=== PATIENT | male | born 1935 | race Caucasian/White ===

== ENCOUNTER 2019-09-25 11:06 | Outpatient (CLI) | payer MEDICARE, BC ==
[~2019-09-25] VITALS: Ht 185.4 cm; Wt 73.9 kg
--- NOTE | ~2019-09-25 | HEMODYNAMI ---
PATIENT:HUSSEIN LEAL JR MEDICAL RECORD: [id number] : 35 LOCATION:[facility] ADMISSION DATE: 09/25/19 Generatedon:09/25/201913:51 Patient name: HUSSEIN LEAL Patient #: [id number] SSN: [id number] : 1935 Date of study: 09/25/2019 Page: Of Hemodynamic Procedure Report Patient Data Patient Demographics Procedure consent was obtained First Name: HUSSEIN Gender: Male Last Name: MEL Suffix: [facility] Initial: Giulia : 1935 Patient #: [id number] Age: 84 year(s) Race: SSN: [id number] Additional ID: [id number] Contact details Address: [address] [place] [address] State: [place] City: [place] Zip code: [address] Past Medical History Allergies Allergen Reaction Date Comments Reported Sulfa drugs 09/25/2019 Admission Admission Data Admission Date: 09/25/2019 Admission Time: 11:06 Arrival Date: 09/25/2019 Arrival Time: 0:00 Admit Source: Other Insurance Payor: Medicare [facility] #: [id number] Procedure Procedure Types Cath Procedure Diagnostic Procedure [facility] LH w/Coronaries Sedation Charges Moderate Sedation up to 30 minutes PCI Procedure Coronary Stent Coronary Stent Initial Coronary Stent Additional Hemochron ACT Test Procedure Description Procedure Date Procedure Date: 09/25/2019 Procedure Start Time: 13:14 Procedure End Time: 13:48 Procedure Staff Name Function Cisco Borrero MD Performing Physician Sana Fernandez RT Monitor Dalton Jeffery RT Scrub Neville Olvera RN Nurse Procedure Data Cath Procedure Fluoroscopy Diagnostic fluoroscopy Total fluoroscopy Time: 8.9 time: 8.9 min min Diagnostic fluoroscopy Total fluoroscopy dose: dose: 1543 mGy 1543 mGy Contrast Material Contrast Material Type Amount (ml) Isovue 300 127 Entry Location Entry Primary Successful Side Size Upsize Upsize Entry Closure Succes sful Closure Location (Fr) 1 (Fr) 2 (Fr) Remarks Device Remarks Femoral Right 5 Fr Exoseal artery Estimated blood loss: 5 ml Diagnostic catheters Device Type Used For End Catheter Placement MULTIPACK JL 4.0 5Fr Left Coronary catheter Angiography MULTIPACK 3DRC 5Fr Right Coronary catheter Angiography MULTIPACK Pigtail 5 Fr LV Angiography catheter Procedure Complications No complications Procedure Medications Medication Administration Route Dosage Oxygen etCO2 Nasal cannula 2 l/min Lidocaine 2% added to field 20 Heparin Flush Bag added to field 2 bags (1000units/500ml NS) 0.9% NaCl I.V. 100 ml/hr Versed I.V. 1 mg Fentanyl I.V. 50 mcg Heparin Bolus I.V. 4000 units Versed I.V. 1 mg Integrilin (Bolus I.V. 6.8 ml 2mg/ml) Vasotec 2.5 mg Fentanyl I.V. 50 mcg Plavix P.O. 600 mg Hemodynamics Rest Heart Rate: 59 (bpm) Pressure Samples Time Site Value (mmHg) Purpose Heart Use Rate(bpm) 13:20 LV 191/7,6 Snapshot 73 Gradients Valve Time Site Site Mean SEP/DFP Peak To Heart Use 1 2 (mmHg) (sec/min) Peak Rate (mmHg) (bpm) Aortic 13:21 LV AO 67 Snapshots Pre Cath Intra NCS Post Cath Vital Signs Time Heart Resp SPO2 etCO2 NIBP (mmHg) Rhythm Pain Sedation Rate (ipm) (%) (mmHg) Status Level (bpm) 13:07:21 55 14 98 41.1 218/87(122) NSR 0 (11) 10(A) , No pain 13:12:04 52 16 100 35.1 218/90(187) NSR 0 (11) 10(A) , No pain 13:16:42 53 17 100 4.4 216/95(186) NSR 0 (11) 10(A) , No pain 13:21:21 58 12 100 2.9 223/102(173) NSR 0 (11) 9(A) , No pain 13:26:04 64 19 100 29.8 219/92(106) NSR 0 (11) 9(A) , No pain 13:30:44 60 11 100 27.6 210/90(169) NSR 0 (11) 9(A) , No pain 13:36:32 60 19 100 38.1 194/91(111) NSR 0 (11) 9(A) , No pain 13:42:16 64 14 100 40.3 223/100(164) NSR 0 (11) 9(A) , No pain 13:46:57 60 13 100 41.8 224/94(185) NSR 0 (11) 10(A) , No pain Medications Time Medication Route Dose Verified Delivered Reason Notes Effectiveness by by 13:04:57 Oxygen etCO2 2 Cisco Lozada used for Nasal l/min St Geo Olvera RN procedure cannula 13:05:02 Lidocaine 2% added 20ml Cisco Peck for local to vial [facility] anesthetic field MD HARRINGTON 13:05:08 Heparin Flush added 2 Cisco Peck used for Bag to bags [facility] procedure (1000units/500ml field MD HARRINGTON NS) 13:05:16 0.9% NaCl I.V. 100 Cisco Lozada Per physician ml/hr St Geo Olvera RN, MD 13:08:22 Versed I.V. 1 mg Cisco Lozada for sedation [facility] Geo Olvera RN, MD 13:08:32 Fentanyl I.V. 50 Cisco Lozada for sedation mcg [facility] Geo Olvera RN, MD 13:17:54 Versed I.V. 1 mg Cisco Lozada for sedation St Geo Olvera RN, MD 13:23:33 Heparin Bolus I.V. 4000 Cisco Lozada for verif ied units St Geo Olvera RN anticoagulation with dr MD dykes 13:25:18 Integrilin I.V. 6.8 Cisco Lozada for waste d (Bolus 2mg/ml) ml St Geo Olvera RN antiplatelet 3.2 ml therapy of vial 13:28:58 Vasotec IV 2.5 Cisco Lozada for mg [facility] Geo Olvera RN hypertension 13:40:22 Fentanyl I.V. 50 Cisco Lozada for sedation mcg St Geo Olvera RN, MD 13:44:29 Plavix P.O. 600 Cisco Lozada for mg St Geo Olvera RN antiplatelet therapy Procedure Log Time Note 12:18:31 Diagnostic Cath Status : Elective 12:20:25 Arrival Date: 09/25/2019 12:00:00 AM 12:21:16 Admit Source: Other 12:21:19 Insurance Payor : Medicare 12:22:18 Procedure Status Elective Heart Cath (OP). 12:22:20 Neville Olvera RN sent for patient. Start room use. 12:22:21 Time tracking: Regular hours (M-F 7:00 - 5:00) 12:22:24 Plan of Care:Hemodynamics will remain stable., Cardiac rhythm will remain stable., Comfort level will be maintained., Respiratory function will remain adequate., Patient/ family verbilizes understanding of procedure., Procedure tolerated without complication., Recovers from procedure without complications.. 12:54:03 Patient received from Pre/Post Procedure Room to CCL 2 Alert and oriented. Tansferred to table in Supine position. 12:54:05 Warm blankets applied, and sheila hugger turned on for patient comfort. 12:54:06 Signed procedure consent form obtained from patient. 12:54:07 Correct patient and procedure confirmed by team. 12:54:07 ECG and BP/O2 sat monitors applied to patient. 12:58:24 H&P Date Dictated: 09/22/2019 Within 30 days and on chart., H&P Addendum completed by physician on day of procedure. (MUST COMPLETE FOR ALL OUTPATIENTS). 12:58:25 Pre-procedure instructions explained to patient. 12:58:25 Pre-op teaching completed and patient verbalized understanding. 12:58:27 Family in patients room. 12:58:28 Patient NPO since Midnight. 12:58:33 Patient allergic to Sulfa drugs 12:58:38 Is the patient allergic to Iodine/contrast media? No. 12:58:39 Is patient on blood thinner?No 12:58:41 Full Disclosure recording started 12:58:45 Patient diabetic? No. 12:58:47 Previous problem with sedation/anesthesia? No ? 12:58:48 Snore? Yes 12:58:49 Sleep apnea? No 12:58:50 Deviated septum? No 12:58:51 Opens mouth fully? Yes 12:58:51 Sticks out tongue? Yes 12:58:53 Airway obstruction? No ? 12:58:55 Dentures? No ? 12:59:03 Patient pain scale 0/10 ?. 12:59:33 IV patent on arrival in left forearm with 0.9% NaCl at [facility]. 13:04:07 Baseline sample Acquired. 13:04:18 Right groin area was prepped with chlora-prep and draped in sterile fashion 13:04:19 Alarms reviewed by RJuancarlos NJuancarlos 13:04:19 Sharps counted by scrub and verified by R.N. 13:04:20 Physician arrived 13:04:21 --------ALL STOP TIME OUT------ 13::21 Final Timeout: patient, procedure, and site verified with staff and physician. All members of the team are in agreement. 13:04:23 Right groin site verified by team. 13:04:26 Fire Safety Assessment: A--An alcohol-based skin anteseptic being used preoperatively., C--Open oxygen or nitrous oxide is being used., D--An ESU, laser, or fiber-optic light is being used. 13:04:30 Physical assessment completed. ASA score P 2 - A patient with mild systemic disease as per Cisco Borrero MD. 13:04:34 Sedation plan: IV Moderate Sedation Medication:Versed, Fentanyl 13:04:47 Vital chart was started 13:04:55 Baseline sample Acquired. 13:04:57 Oxygen 2 l/min etCO2 Nasal cannula was administered by Neville Olvera RN; used for procedure; Verbal order read back and verified. 13:05:00 Rhythm: sinus rhythm 13:05:02 Lidocaine 2% 20ml vial added to field was administered by Cisco Borrero MD; for local anesthetic; Verbal order read back and verified. 13:05:08 Heparin Flush Bag (1000units/500ml NS) 2 bags added to field was administered by Cisco Borrero MD; used for procedure; Verbal order read back and verified. 13:05:16 0.9% NaCl 100 ml/hr I.V. was administered by Neville Olvera RN; Per physician; Verbal order read back and verified. 13:08:22 Versed 1 mg I.V. was administered by Neville Olvera RN; for sedation; Verbal order read back and verified. 13:08:32 Fentanyl 50 mcg I.V. was administered by Neville Olvera RN; for sedation; Verbal order read back and verified. 13:13:03 2) 60-89 Mildly reduced kidney function, and other findings (as for stage 1) point to kidney disease. 13:13:06 Maximum allowable contrast dose (3.7 X eGFR X 0.75)250 ml. 13:13:11 Use device set Femoral Dx 13:13:12 ACIST Syringe (24356) opened to sterile field. 13:13:12 Bag Decanter (2001S) opened to sterile field. 13:13:13 Medline Cath Pack ([id number]) opened to sterile field. 13:13:14 ACIST Hand Control (63060) opened to sterile field. 13:13:14 ACIST Manifold (64863) opened to sterile field. 13:13:14 DIAGNOSTIC Multipack 5Fr catheter set (OY1812) opened to sterile field. 13:13:15 Tegaderm 4 x 4 (1626W) opened to sterile field. 13:13:16 SHEATH 5FR [place] (DYA073) opened to sterile field. 13:13:16 EMERALD Guide Wire (084-692) opened to sterile field. 13:13:20 Procedure started. 13:14:58 Local anesthetic to right femoral artery with Lidocaine 2% by Cisco Borrero MD.INITIAL ACCESS ONLY 13:15:05 A 5 Fr sheath was inserted into the Right Femoral artery 13:15:08 Zero performed for pressure channel P1 13:16:10 A MULTIPACK JL 4.0 5Fr catheter was advanced over the wire and used for Left Coronary Angiography. 13:17:18 LCA angiography performed. 13:17:22 Injector settings: Ml/sec: 3, Volume: 6, 13:17:54 Versed 1 mg I.V. was administered by Neville Olvera RN; for sedation; Verbal order read back and verified. 13:18:24 Catheter removed. 13:18:50 A MULTIPACK 3DRC 5Fr catheter was advanced over the wire and used for Right Coronary Angiography. 13:19:16 RCA angiography performed. 13:19:21 Injector settings: Ml/sec: 3, Volume: 6, 13:19:28 Catheter removed. 13:19:34 A MULTIPACK Pigtail 5 Fr catheter was advanced over the wire and used for LV Angiography. 13:20:55 LV hemodynamics recorded. 13:20:56 LV gram done using MENDOZA 13:21:00 Injector settings: Ml/sec: 5, Volume: 15, 13:21:05 EF : 55 % 13:21:30 SHEATH 6FR [place] (TFO920) opened to sterile field. 13:21:31 WHISPER 300cm guide wire ([id number]) opened to sterile field. 13:21:32 INFLATOR Merit BasixCompak (MG9072) opened to sterile field. 13:21:32 GUIDE 6FR XBLAD 3.5 catheter ([id number]) opened to sterile field. 13:21:43 6 Fr xblad 3.5 guide catheter was inserted over the wire 13:21:48 whisper wire advanced. 13:21:50 ACC Pre-intervention LAWANDA Flow is 3. 13:23:33 Heparin Bolus 4000 units I.V. was administered by Neville Olvera RN; for anticoagulation; verified with dr dykes Verbal order read back and verified. 13:25:18 Integrilin (Bolus 2mg/ml) 6.8 ml I.V. was administered by Neville Olvera RN; for antiplatelet therapy; wasted 3.2 ml of vial Verbal order read back and verified. 13:26:43 Wire advanced across lesion. 13:28:51 Pre PCI Site: [place] Diag1 has 80% stenosis. 13:28:58 Vasotec 2.5 mg IV was administered by Neville Olvera RN; for hypertension; Verbal order read back and verified. 13:30:38 The INTEGRITY OTW 2.5 x 14 stent ([id number]) was advanced then removed because in body, not inflated 13:30:47 Wire removed. 13:30:49 Guide catheter removed. 13:32:12 GUIDE 6FR Q 4.0 catheter ([id number]) opened to sterile field. 13:32:57 6 Fr q4 guide catheter was inserted over the wire 13:34:39 whisper wire advanced. 13:35:55 Place stent Inflation Number: 1 A INTEGRITY OTW 2.5 x 14 stent ([id number]) was prepped and advanced across the 1st Diag 80. The stent was deployed at 14 SANCHEZ for 0:30 (min:sec) 0. 13:36:27 Wire redirected to LAD. 13:38:17 Stent catheter was removed intact over wire. 13:39:15 Place stent Inflation Number: 1 A INTEGRITY RX 3.0 x 09 stent ([id number]) was prepped and advanced across the Prox LAD 80. The stent was deployed at 14 SANCHEZ for 0:10 (min:sec) 0. 13:40:22 Fentanyl 50 mcg I.V. was administered by Neville Olvera RN; for sedation; Verbal order read back and verified. 13:40:30 Wire redirected to diagonal. 13:43:17 Inflate balloon Inflation number: 2 A EUPHORA 2.0 x 12 Balloon ([id number]) was prepped and advanced across the 1st Diag 80, then inflated to 8 SANCHEZ for 0:30 (min:sec) 0. 13:43:43 Balloon removed over the wire. 13:43:43 Wire removed. 13:43:44 Guide catheter removed. 13:43:54 EXOSEAL 6Fr (EX600) opened to sterile field. 13:44:10 Sheath removed intact; hemostasis achieved with Exoseal to the Right Femoral artery. 13:44:27 Procedure ended.(Physican Out) 13:44:29 Plavix 600 mg P.O. was administered by Neville Olvera RN; for antiplatelet therapy; Verbal order read back and verified. 13:45:26 Fluoroscopy time 08.90 minutes. 13:45:30 Flurop Dose total: 1543 13:45:30 Fluoroscopy dose: 1543 mGy 13:45:37 Dose Area Product 72941 mGy/cm. 13:45:44 Contrast amount:Isovue 300 127ml. 13:46:00 Maximum allowable dose exceeded? No. 13:46:01 Sharps counted by scrub and verified by R.N. 13:46:04 Insertion/operative site no bleeding no hematoma. 13:46:08 Post-op/insertion site Right Femoral artery dressed using a 4 x 4 and Tegaderm. 13:46:10 Post Procedure Pulses reassessed and unchanged 13:46:12 Post procedure rhythm: unchanged. 13:46:15 Estimated blood loss: 5 ml 13:46:16 Post procedure instruction explained to patient.Patient verbalizes understanding. 13:46:17 Patient needs reinforcement of post procedure teaching. 13:47:43 Procedure type changed to Cath procedure, Diagnostic procedure, LHC, [facility] w/Coronaries, Sedation Charges, Moderate Sedation up to 30 minutes, PCI procedure, Coronary Stent, Coronary Stent Initial, Coronary Stent Additional, Hemochron ACT Test 13:47:44 Procedure and supply charges have been captured, reviewed, submitted and are correct. 13:47:47 Procedure Complication : No complications 13:47:50 Vital chart was stopped 13:47:54 [facility] Findings: MVD- PCI performed (see procedure note) 13:47:55 Operative report dictated upon procedure completion. 13:47:56 See physician's report for complete and final results. 13:47:57 Report given to Pre/Post Procedure Room. 13:48:01 Procedure ended. 13:48:01 Full Disclosure recording stopped 13:48:10 ACC-PCI Only Patient was given prescriptions, or instructed by Cisco Borrero MD to start/continue the following medications upon discharge: Plavix 13:48:12 End room use (Document Last) 13:50:28 End room use (Document Last) 13:50:41 ACT drawn and resulted at 331 seconds. (normal therapeutic range 180-240 seconds). 13:50:57 End room use (Document Last) Intervention Summary Intervention Notes Time ActionType Lesion and Equipment Action# Pressure Duration Attributes Used 13:30:38 Discard INTEGRITY Stent OTW 2.5 x 14 stent ([id number]) 13:35:55 Place stent 1st Diag INTEGRITY 1 14 00:30 OTW 2.5 x 14 stent ([id number]) 13:39:15 Place stent Prox LAD INTEGRITY RX 1 14 00:10 3.0 x 09 stent ([id number]) 13:43:17 Inflate 1st Diag EUPHORA 2.0 2 8 00:30 balloon x 12 Balloon ([id number]) Device Usage Item Name Manufacture Quantity Catalog Number Hospital Part Current [facility] Lot# / Charge Number Stock Stock Serial# Code ACIST Acist 1 28849 056234 757157 997297 20 Syringe Medical (80620) Systems Inc Bag Decanter Microtek 1 2001S 174987 26601 001766 5 (2001S) Medical Inc. Medline Cath Medline 1 [id number] 281977 14504 138400 5 Pack ([id number]) ACIST Hand Acist 1 80625 871413 268612 607121 5 Control Medical (28308) Systems Inc ACIST Acist 1 98794 534013 462959 194237 5 Manifold Medical (71109) Systems Inc DIAGNOSTIC Cardinal 1 IN1299 641077 69420 460099 30 Admiral [employer] Management[facility]istol [facility] ticketscript 5Fr catheter set (GN5898) Tegaderm 4 x 3M 1 1626W 105018 503472 757779 5 4 (1626W) SHEATH 5FR Terumo 1 KSD140 034828 587349 263883 5 [place] (WQX026) EMERALD Cardinal 1 502-455 917285 726237 813905 5 Guide Wire Health (502455) MULTIPACK JL Cardinal 1 326331 5 4.0 5Fr Health catheter MULTIPACK Cardinal 1 900785 5 3DRC 5Fr Health catheter MULTIPACK Cardinal 1 961476 5 Pigtail 5 Fr Health catheter SHEATH 6FR Terumo 1 AFQ339 849608 694526 322335 40 [place] (SLI612) WHISPER [place] And[place] 1 [id number] 741205 072328 458549 5 300cm guide Vascular wire ([id number]) INFLATOR Merit 1 WD1216 987417 232663 775597 15 [place] Medical BasixCompak (PT5222) GUIDE 6FR Cardinal 1 17985181 457058 737956 196832 10 XBLAD 3.5 Health catheter (62976782) INTEGRITY Medtronic 1 [id number] 388788 815005 656904 7 [id number] OTW 2.5 x 14 stent ([id number]) GUIDE 6FR Q Mozier 1 [id number] 402920 033840 145133 1 4.0 catheter Scientific ([id number]) INTEGRITY RX Medtronic 1 [id number] 748316 196353 344851 5 [id number] 3.0 x 09 stent ([id number]) EUPHORA 2.0 Medtronic 1 [id number] 642421 216315 803836 5 [id number] x 12 Balloon ([id number]) EXOSEAL 6Fr Cardinal 1 EX600 105178 135063 343711 10 (EX600) Health Signature Audit Caro Stage Time Signature Unsigned Intra-Procedure 09/25/2019 Sana Fernandez 1:50:28 PM RT(R) Intra-Procedure 09/25/2019 Neville Olvera RN 1:50:57 PM Intra-Procedure 09/25/2019 Cisco Ruiz 1:51:18 PM Geo HARRINGTON Signatures Performing Physician : Signature : Cisco Borrero MD Date : Time : Monitor : Sana Ijm RT Signature : Date : Time : Nurse : Buffie Olvera RN Signature : Date : Time : [address] [place] [address]
[~2019-09-25 11:06] MED LIST: BAYER CHEWABLE81 MG PO; FLOMAX0.4 MG PO; PLAVIX75 MG PO
[2019-09-25] MEDS ORDERED: K-DUR20 MEQ PO (11:42)
[2019-09-25] MEDS ORDERED: ZOLOFT50 MG PO (11:42)
[2019-09-25] MEDS ORDERED: FLORINEF 0.1 M0.1 MG PO (11:42)
[2019-09-25] MEDS ORDERED: SUPER B COMPLE1 EAC1 PO (11:44)
[2019-09-25] MEDS ORDERED: PROSCAR5 MG PO (11:44)
[2019-09-25] MEDS ORDERED: SAW PALMETTO450 MG PO (11:44)
[2019-09-25 11:57] VITALS: BP 215/84; Ht 185.4 cm; Wt 73.9 kg
[2019-09-25 12:09] LABS: BASOPHILS 0.6 % (0-2); EOSINOPHILS 1.8 % (0-7); HEMATOCRIT 42.6 % (42.0-54.0); HEMOGLOBIN 13.9 g/dL (13.5-17.5); IMMATURE GRANULOCYTES 0.2 % (0-5); LYMPHOCYTES 15.5 % (15-50); MCH 32.9 pg (26.0-34.0); MCHC 32.6 g/dL (31.0-37.0); MCV 100.7 fL (80.0-100.0); MONOCYTES 6.7 % (2-11); NEUTROPHILS 75.2 % (40-80); PLATELET COUNT 173 10x3/uL (130-400); RBC 4.23 10x6/uL (4.20-6.10); RDW 12.7 % (11.5-14.5); WBC 5.4 10x3/uL (4.8-10.8)
[2019-09-25 13:08] LABS: ALT (SGPT) 24 U/L (10-68); CALC OSMOLALITY 281 mosm/kg (275-300); CALCIUM 8.6 mg/dL (8.5-10.1); CARBON DIOXIDE 33.4 mmol/L (21.0-32.0); CHLORIDE - SERUM 105 mmol/L (98-107); CHOL - HDL RATIO 2.3 ratio (2.3-4.9); CHOLESTEROL, TOTAL 159 mg/dL (0-200); CREATININE - SERUM 0.9 mg/dL (0.6-1.3); GLUCOSE 96 mg/dL (74-106); HDL CHOLESTEROL 69 mg/dL (32-96); LDL CHOLESTEROL 82 mg/dL (0-100); LDL-HDL RATIO 1.2 ratio (1.5-3.5); POTASSIUM - SERUM 3.3 mmol/L (3.5-5.1); SODIUM 141 mmol/L (136-145); TRIGLYCERIDE 44 mg/dL (30-200); UREA NITROGEN 15 mg/dL (7-18); eGFR NON AFRICAN AMERICAN 85 mL/min (90-120)
[2019-09-25] MEDS ORDERED: PLAVIX75 MG PO (13:57)
--- NOTE | 2019-09-25 14:05 | NUR ---
PT RECEIVED VIA STRETCHER BACK TO ROOM FOR RECOVERY. PT DROWSY, BUT VERBALLY AROUSALBE. PT DENIES PAIN OR DISCOMFORT. IV PATENT INFUSING VIA ORDERS TO L ARM. R GROIN W 6FR EXOCELE, DRESSING CDI NO S/S HEMATOMA OR BLEEDING NOTED. LEG PINK AND WARM, PEDAL PULSES PALPABLE. PT PLACED ON CARDIAC MONITORS AND O2 VIA NC AT 2L. HR SB 59, BP 203/79, RR 13, SAT 100. CALL LIGHT IN REACH, AT BS.
--- NOTE | 2019-09-25 14:26 | NUR ---
DR FINN NOTIED OF PT BLOOD PRESSURE, HE IS AWARE NO NEW ORDERS RECEIVED.
--- NOTE | 2019-09-25 14:33 | NUR ---
PT RESTING COMFORTABLY. R GROIN SOFT, DRESSING REMAINS CDI NO S/S HEMATOMA OR BLEEDING NOTED. CALL LIGHT IN REACH, AT BS.
--- NOTE | 2019-09-25 15:15 | NUR ---
GROIN REMAINS SOFT, DRESSING CDI NO S/S HEMATOMA OR BLEEDING. PT C/O HEARTBURN FROM PLAVIX, SIPS OF SPRITE GIVEN. VSS AT PRESENT. CALL LIGHT IN REACH, AT BS
--- NOTE | 2019-09-25 15:45 | NUR ---
PT STATES HEARTBURN IS BETTER. R GROIN SOFT, DRESSING REMAINS CDI NO S/S HEMATOMA OR BLEEDING NOTED. BP BETTER, 165/68, HR 50, RR 12. CALL LIGHT REMAINS IN REACH.
--- NOTE | 2019-09-25 16:19 | NUR ---
NO CHANGE IN CONDITION. GROIN SOFT, DRESSING CDI NO S/S HEMATOMA. LEG PINK AND ARM, PEDAL PULSES PALPABLE. AT BS. PT DENIES PAIN OR NEEDS AT THIS TIME.
--- NOTE | 2019-09-25 16:44 | NUR ---
R GROIN SOFT, NO S/S HEMATOMA. HOB ELEVATED SLIGHTLY. SPRITE SERVED, OFFERED SANDWICH PT DECLINES AT THIS TIME. DENIES PAIN OR OTHER NEEDS. CALL LIGHT IN REACH, AT BS
--- NOTE | 2019-09-25 17:20 | NUR ---
DISCHARGE INSTRUCTIONS REVIEWED W PT AND , ALSO EXPLAINED THE IMPORTANCE OF GETTING PLAVIX PRESCRIPTION FILLED AND STARTING THAT TOMORROW. THEY BOTH VERBALIZED UNDERSTANDING. GROIN REMAINS SOFT AND FREE OF BLEEDING OR HEMATOMA.
--- NOTE | 2019-09-25 17:36 | NUR ---
IV REMOVED W CATH INTACT. GROIN SOFT, NO S/S HEMATOMA. PT INSTRUCTED TO SIT ON SIDE OF BED TO ASSURE HE DOESN'T HAVE A BP DROP SINCE THAT IS HIS HX. BP 176/66, SITTING. PT DENIES DIZZINESS OR OTHER SYMPTOMS. HE VOIDED A SMALL AMOUNT IN URINAL, BLOOD TINGED IN COLOR. INSTRUCTED PT TO WATCH AND DRINK A LOT OF WATER THE NEXT 24 HOURS AND IF HE STARTED HAVING ANY PAIN OR INCREASED BLOOD IN URINE TO SEE PCP. PT UP TO DRESS FOR DISCHARGE W ASSIST FROM .
--- NOTE | 2019-09-25 17:58 | NUR ---
PT DISCHARGED VIA WC TO WAITING IN PRIVATE VEHICLE
--- NOTE | 2019-09-26 09:27 | OP ---
PATIENT NAME: HUSSEIN LEAL JR MEDICAL RECORD: [id number] :35 LOCATION:D.CAT ADMISSION DATE: SURGEON: ALONZO FINN MD DATE OF OPERATION: 09/25/2019 PROCEDURE: Left heart catheterization, selective coronary angiography, right femoral artery approach. CATHETERS: A 5-Dominican sheath, 5/4 left and right Brendan, 5/4 pig. The procedure was well tolerated. The patient returned to wooten, sheath removed. ExoSeal device placed. FINDINGS: Left ventriculography in 30-degree MENDOZA view: Normal wall motion and normal systolic function. CORONARY ANATOMY: LEFT MAIN: Left main is free of disease. 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 There is a large D1 that has a new lesion of 80%. CIRCUMFLEX: Previous stenting is widely patent. RIGHT CORONARY ARTERY: Dominant artery, gives rise to PDA and is widely patent. PLAN: Intervention to diagonal LAD momentarily. DESCRIPTION OF PROCEDURE: A 5-Dominican sheath was exchanged for a 6-Dominican sheath. An XB LAD guiding catheter provided excellent guide catheter support followed by 300 cm whisper wire. We addressed the diagonal 80% stenosis with a 2.5 x 50 mm Integrity nondrug-eluting stent. Next, using the same whisper wire across the 90% restenosis LAD down this portion of vessel, we deployed a discrete 3.0 x 9 mm Integrity nondrug eluting stent up to 14 atmospheres. Final angiography shows excellent position of the 80% stenosis in the diagonal, 90% stenosis in the LAD. No significant residual. LAWANDA flow was 3 throughout the procedure. Heparin and Integrilin were used during the case. Sheath was closed with ExoSeal device. Plavix was loaded in the lab. TRANSINT:[id number] Voice Confirmation ID: [id number] DOCUMENT ID: [id number] ALONZO FINN MD at 0927 CC: [id number] DICTATION DATE: 09/25/19 1351 INSIDE TESTER: 09/25/19 2149 DEP CLI 09/25/19 [place] [id number] [place] [id number]
== END 2019-09-25 17:55 | disposition home or self-care (01) ==
LOC: D.CATH 11:06
PROVIDERS: ATTEND Internal Medicine Interventional Cardiology
DX: I25.119 Atherosclerotic heart disease of native coronary artery with unspecified angina pectoris (principal); E78.5 Hyperlipidemia, unspecified